=== PATIENT | male | born 1950 | race Caucasian/White ===

== ENCOUNTER 2017-09-07 06:46 | Inpatient (IN) | payer MEDICARE, SELFPAY ==
[2017-09-04 07:45] VITALS: BMI 34.8
[2017-09-07] VITALS (17 sets, daily range): BP systolic 127–170; BP diastolic 66–96; PULSE 56–110; RESP 12–18; TEMP 35.8–37.2; O2SAT 93–98; BMI 34.8
--- NOTE | 2017-09-07 07:26 | PM.PREOP ---
Pre-operative Note Interval Note Pre-op Check: History & Physical Reviewed and Exam Performed H&P completed within 30 days and has changed as indicated here:: L shoulder pain much better today
--- NOTE | 2017-09-07 07:49 | P.OP_ITS ---
Operative Date/Time/Diagnoses - Date of procedure: 09/07/17 Time of procedure: 11:20 Pre-op diagnosis: cervical disc herniation and stenosis Post-op diagnosis: same Procedure & Clinicians Procedure: C56 anterior cervical discectomy and fusion with cage C67 anterior cervical discectomy and fusion with cage C5-6 posterior instrumented fusion C6-7 posterior instrumented fusion Iliac crest bone graft Use of microscope Same procedure as scheduled: Yes Indications: 66-year-old male with intractable stenosis and disc herniation. He failed conservative management and requested operative intervention. Risks and benefits of surgery were discussed and appropriate consent obtained. Surgeon: Nirmal Rojas Campaign Specialist: Helen Lord Anesthesia Type: General Operative Notes Findings: none Closure Type: primary Specimen(s): none sent Estimated Blood Loss (mL): 20 Procedure in detail: The patient was brought to the operating room and intubated on the stretcher. Time-out was performed. There were then rolled over to the well-padded prone position on chest rolls. Two views of fluoroscopy were taken to confirm our positioning. The neck was then prepped and draped in the standard sterile fashion. Preoperative antibiotics were given. Using fluoroscopy, we localized for planned incisions. Two small 8 mm horizontal incisions were made over the lateral masses approximately 2 fingers below our planned surgical site. We then spread down and opened up the fascia. Then percutaneously placed our Steinmann pin through the soft tissue into the facet joint at C5-6 under fluoroscopic visualization. We used the reamer to decorticate the lateral masses compromising the facet. A trocar was placed over the Steinmann pin into the facet and then the pin was removed. We used a rasp to decorticate the facet joint itself. We then filled the DTrax cage with Osteocell bone graft and impacted it into the facet joint at C5-6 under fluoroscopic guidance. We then took the lateral mass screw and placed it through the cage and then into the lateral mass for the posterior screw fixation. The hydraulic specialist was removed and we packed more bone graft down the trocar covering the lateral mass. This was done bilaterally. This completed the instrumented posterior fusion at C5-6. We then went to the next level at C6-7. The same procedure was performed with preparation, placement of the cage with bone graft, and placement of the screw for bilateral instrumented posterior fusion at C6-7. The wounds were irrigated. The skin was closed and a sterile dressing placed. The patient was then rolled over to the table in the supine position and positioned for the anterior surgery. The arms were tucked and a shoulder roll was placed. The neck and left iliac crest were prepped and draped in the standard sterile fashion. A 3 cm oblique incision was made on the left side of the neck along the skin fold. Bovie was used to split the platysma. We then bluntly dissected a standard anterolateral approach to the precervical fascia. A marker was placed and x-ray taken to confirm our positioning. We then used the Bovie to the subperiosteally lift up the longus colli muscles. Self-retaining retractors were placed. We then placed Colfax pins and distracted across the C5-6 disc space. We brought in the microscope. A complete anterior discectomy was performed at C5-6 using a combination of scalpel, curettes, pituitaries, and Kerrison rongeurs. This was very thick hardened disc (not fused as it we could open the disc some with the Caspars). We were able to remove about 1mm at a time with the curettes and then work with Kerrisons. We slowly continued down to PLL. The bur was used to take down the posterior osteophytes as well as decorticate the disc space. We then released the PLL and used the Kerrison to remove any further posterior osteophytes and disc material. At the end a nerve hook could be swept cephalad caudally and out the neural foramen and everything was open. We trialed for our cages. A small stab incision was made over the left iliac crest. We placed a Jamshidi aspiration needle into the iliac crest and aspirated several mL of bone marrow graft. We then took our Meghna LDR RON-C cage and packed it with Osteocell, and mixed in the bone marrow aspirate. The cage was then placed into the disc space under fluoroscopic guidance. We used the started awl then the two locking plates were placed through the cage for fixation. This completed the ACDF at C5-6. We then went to the next level at C6-7. Again a complete diskectomy was performed including taking down the PLL and posterior osteophytes and disc material. Again this was slow going with his thick disc tissue. The endplates were prepped with a bur. We trialed and then packed our RON-C cage with the bone graft and then placed into the disc space. The locking plates were placed as well. This completed the ACDF at C6-7. Final x-rays were taken. The wound was copiously irrigated. There was no bleeding. The carotid was bleeding nicely. The platysma was closed. The superficial skin were closed. A Steri-Strip was placed over the iliac crest incision. Sterile dressings were placed. The patient was then extubated and brought to the recovery room without complication. Complications: none Condition: stable Disposition: PACU Plan for aftercare: Inpatient overnight. Probable discharge tomorrow. Up with physical therapy.
[2017-09-07] MEDS: LACTATED RINGERS 1,000 ML 42 ML IV ×2 (07:56→11:30)
--- NOTE | 2017-09-07 08:00 | DI.RAD.S_ITS ---
PROCEDURE: XR CERVICAL SPINE 2V OR 3V INDICATIONS: C5-6. C6-7 ANTERIOR, POSTERIOR FUSION TECHNIQUE: 2 view(s) of the cervical spine were acquired. COMPARISON: [facility] SIMON Hernandez, XR CERVICAL SPINE 2 OR 3 VIEWS, 07/09/2017, 11:46. FINDINGS: 2 spot fluoroscopic intraoperative images demonstrating C5-C6 and C6-C7 interbody cage graft with anterior retaining hardware, and bilateral facet devices Dictated by: Aniceto Fuller M.D. on 09/07/2017 at 12:10 Approved by: Aniceto Fuller M.D. on 09/07/2017 at 12:49
[2017-09-07] MEDS: CLINDAMYCIN 900 MG/50 ML PIGGYBACK 50 MG IV ×3 (08:20→23:47)
--- NOTE | 2017-09-07 09:11 | SUR.OPER ---
Supine, head on gel donut. Arms padded with gel pads, tucked at sides, towel roll under shoulders. Safety belt at thigh. Legs uncrossed. Prone on padded OR bed, head in foam head support, gel chest rolls, gel pad under knees, pillow under lower legs, toes free of pressure, arms tucked at side. Safety belt at thigh. pt secure with tape from shoulders to the end of the bed per surgeon's preference.
[2017-09-07] MEDS: MORPHINE 4 MG/ML INJ IV ×2 (11:42→11:50)
[2017-09-07] MEDS: THROMBIN (BOVINE) 5,000 UNIT VIAL 5000 UNIT TOP (11:56)
[2017-09-07] MEDS: SODIUM CHLORIDE 0.9% 1,000 ML, GENTAMICIN 80 MG IRR (11:56)
[2017-09-07] MEDS: fentaNYL 100 MCG/2 ML INJ 50 MCG IV ×2 (12:05→12:20)
[2017-09-07] MEDS: LORazepam 2 MG/ML SYRINGE 0.25 MG IV (12:14)
--- NOTE | 2017-09-07 13:04 | PC.NURSE ---
pt arrived to room 220. alert and oriented, drowsy. RR 15. family at bedside.
[2017-09-07] MEDS: LACTATED RINGERS 1,000 ML 125 ML IV ×2 (14:07→23:45)
[2017-09-07] MEDS: MORPHINE PCA 30 MG/30 ML PCA.VIAL IV ×3 (14:17→21:46)
--- NOTE | 2017-09-07 14:29 | ST.IPSCREEN ---
SPEECH PATHOLOGY: Patient seen for voice and swallowing screens following cervical fusion surgery this a.m. Pt's family in the room. Explained that we typically see pts 24 hours following surgery; however, since the weekend is coming, I wanted to provide information and screen the pt. He was drinking ice water and eating ice cream without overt problems. Voice sounded appropriate. Family indicated they understood and were appreciative.
[2017-09-07] MEDS: hydrOXYzine pamoate 25 MG CAPSULE PO ×2 (15:55→20:05)
[2017-09-07] MEDS: OXYCODONE/ACETAMINOPHEN 5/325 TABLET 1 TAB PO (15:55)
[2017-09-07] MEDS: CELECOXIB 200 MG CAPSULE 400 MG PO (15:55)
--- NOTE | 2017-09-07 16:21 | PT.IIE ---
Physical Therapy Inpatient Evaluation/Re-Eval M1 PT/OT-IP Prior Functional Status Start: 09/07/17 16:08 Freq: NEEDED Status: Active Protocol: Document 09/07/17 16:10 AB (Rec: 09/07/17 16:20 AB [id number]) Medical Review Prior Functional Status Medical History Reviewed Yes Mobility and Gait pt stated that he is independent with all mobilities and ambulation without AD Social History Household Members spouse Living Arrangements House Number of Floors (Floors) 3 or More Floors Number of Stairs To Enter/Railing? 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 pt's spouse also works and will be off work for 1 week and their daughter can also come to help. M2 PT-IP Current Condition Start: 09/07/17 16:08 Freq: NEEDED Status: Active Protocol: Document 09/07/17 16:10 AB (Rec: 09/07/17 16:20 AB [id number]) Physical Therapy Current Condition Current Condition Evaluation Date 09/07/17 Treatment Diagnosis s/p ACDF Onset Date 09/07/17 Post Operative Precautions Cervical Spine Precautions Soft Collar for Comfort Soft Collar at all Times Rigid Collar No Heavy Lifting Log Roll M3 PT-IP Subjective Start: 09/07/17 16:08 Freq: NEEDED Status: Active Protocol: Document 09/07/17 16:10 AB (Rec: 09/07/17 16:20 AB [id number]) Subjective Physical Therapy Visit Type Type Initial Evaluation Visit Start Time 15:30 Visit Stop Time 16:02 Total Visit Minutes 32 Number of CUSTOMER ACCOUNT ADMINISTRATOR Visits 0 Physical Therapy Visit Comments Patient Comments pt requested to stand to use the urinal Therapy Pain Assessment Pain When Pain Assessed At Rest Pain Present Pain Present Pain Reported Location Neck Intensity 8 Scale Used Numeric (1 - 10) Pain Behaviors Facial Grimacing Wincing Pain Management Techniques Apply Cold Timing of Activity with Medications M4 PT-IP Mobility and Gait Start: 09/07/17 16:08 Freq: NEEDED Status: Active Protocol: Document 09/07/17 16:10 AB (Rec: 09/07/17 16:20 AB [id number]) PT-Bed Mobility Assessment Rolling Level of Assist Standby Assistance Supine to Sit Supine to Sit Standby Assistance Sit to Supine Sit to Supine Minimal Assistance Scooting Scooting Up and Down in Bed Standby Assistance PT-Transfer Assessment Sit to and From Stand Sit to and from Stand Contact Guard Assistance Equipment Transfer Assistive Device Gait Belt Front Wheeled Walker Comments Mobility Comments pt completed sit to stand from EOB CGA and was able to maintain standing CGA while using urinal. pt refused to do further therapy and wants to go back to bed due to increase pain. Gait Assessment Assistive Devices Assistive Device Gait Belt Front Wheeled Walker Comments Gait Comments pt was able to take side steps towards HOB using FWW CGA. PT-Balance Assessment Sitting Balance and Reactions Static Sitting Balance Ability Good Dynamic Sitting Balance Ability Good Standing Balance and Reactions Static Standing Balance Ability Fair Dynamic Standing Balance Ability Fair M5 PT-IP Objective Assessments Start: 09/07/17 16:08 Freq: NEEDED Status: Active Protocol: Document 09/07/17 16:10 AB (Rec: 09/07/17 16:20 AB [id number]) Orientation Orientation/Cognition Level of Alertness Alert Orientation Name Age Birthday Month Date Year Day of Week Place Situation Strength Lower Extremity Strength Assessment Within Functional Limits M6 PT-IP Treatment Start: 09/07/17 16:08 Freq: NEEDED Status: Active Protocol: Document 09/07/17 16:10 AB (Rec: 09/07/17 16:20 AB [id number]) Physical Therapy Treatment Education Post-Op Education Precautions Post-Op Packet Safety M7 PT-IP Assessment and Plan Start: 09/07/17 16:08 Freq: NEEDED Status: Active Protocol: Document 09/07/17 16:10 AB (Rec: 09/07/17 16:20 AB [id number]) PT Summary Assessment and Plan Potential Rehabilitation Potential Good Status of Condition at Evaluation Evolving Summary Impairments Pain ROM Strength Balance Coordination Sensation Tone Cognition Bed Mobility Transfers Gait Activity Tolerance Assessment Summary pt unable to tolerate much activity due to increase pain. will continue to assess. pt plans to go home with spouse assisting him. stair training will also be completed prior to d/c. Goals Bed Mobility Goal Independent Transfer Goal Independent Gait Goal Independent Gait Distance 200 Other Goals up/down 5 steps without rails Days to Meet Goals 3 Frequency of Treatment Frequency Of Treatment Twice a Day Treatment Plan Physical Therapy Treatment Plan Bed Mobility Training Transfer Training Gait Training Therapeutic Exercise Post Op Education Discharge Planning Hot or Cold Pack Neuromuscular Re-ed Recommendations To Nursing Amount of Assist Needed 1 Person Assist Discharge Recommendations PT Discharge Recommendations Home with Assistance Visit Care Team Role Provider Type Cornelius Velasquez MD Primary Care Provider Physician Nirmal Rojas MD Admit Provider Physician Attending Provider Current Diagnoses Carpal tunnel syndrome, right upper limb (09/07/17) Other spondylosis with myelopathy, cervical region (09/07/17) Spinal stenosis, cervical region (09/07/17) Medical History (Last Updated 09/06/17 @ 10:29 by Johanna Caldwell RN) Carpal tunnel syndrome (Acute) HTN (hypertension) (Acute) Neuropathy (Acute) Sleep apnea (Acute) Surgery Performed Operation Date: 09/07/17 07:45 Actual Procedures p C5-6 and C6-7 anterior discectomy & instrumentd fusion & posterior instrumented fusion w/bone graft - Nirmal Rojas MD Surgical History (Last Updated 09/06/17 @ 10:29 by Johanna Caldwell, RN) H/O shoulder surgery (Acute) History of cranial surgery (Acute) Previous back surgery (Acute)
[2017-09-07] MEDS: METOPROLOL 50 MG TABLET 100 MG PO (20:05)
[2017-09-07] MEDS: SENNOSIDES 8.6 MG TABLET 17.2 MG PO (20:05)
[2017-09-07] MEDS: DOCUSATE 100 MG CAPSULE PO (20:05)
[2017-09-07] MEDS: HYDROCODONE/ACET 5/325 TABLET 2 TAB PO (20:05)
[2017-09-08] MEDS: MAG HYDROX/ALUM/SIMETH 30 ML UDC PO ×3 (00:02→15:50)
[2017-09-08 00:28] VITALS: PULSE 106; RESP 18; TEMP 36.9; O2SAT 95
[2017-09-08] MEDS: hydrOXYzine pamoate 25 MG CAPSULE PO ×3 (04:01→15:47)
[2017-09-08] MEDS: HYDROCODONE/ACET 5/325 TABLET 2 TAB PO (04:03)
[2017-09-08 04:59] VITALS: BP 184/81; PULSE 73; RESP 18; TEMP 36.8; O2SAT 92
[2017-09-08] MEDS: MORPHINE PCA 30 MG/30 ML PCA.VIAL IV (05:44)
[2017-09-08 05:54] LABS: Hematocrit 39.6 % (41-53); Hemoglobin 13.5 g/dL (13.5-17.5)
[2017-09-08 07:30] VITALS: BP 149/79; PULSE 54; RESP 18; TEMP 36.4; O2SAT 94
[2017-09-08] MEDS: ALLOPURINOL 300 MG TABLET PO (09:26)
[2017-09-08] MEDS: DOCUSATE 100 MG CAPSULE PO ×2 (09:27→19:45)
[2017-09-08] MEDS: TRIAMTERENE/HCTZ 37.5/25 TABLET 1 CAP PO (09:27)
[2017-09-08] MEDS: METOPROLOL 50 MG TABLET 100 MG PO ×2 (09:27→19:44)
[2017-09-08] MEDS: LISINOPRIL 20 MG TABLET 40 MG PO (09:27)
--- NOTE | 2017-09-08 09:34 | PM.PNPO.1 ---
Subjective Interval history: POD #1 status post C 5-6, C6-7 anterior and posterior cervical diskectomy and fusion with Dr. phillips. Patient's pain was not well controlled by last night, placed onto a DIETARY SERVICE AIDE for pain control. Complaints of deep neck pain. No difficulty swallowing. Patient will be the CD from DIETARY SERVICE AIDE today and placed on oral Dilaudid. We will also give prednisone per 24 hr burst, he states he has had no previous issues taking prednisone in the past, and is not diabetic. Has not been up with PT yet. Is urinating well. Was having discomfort with soft collar. Date Patient Seen: 09/08/17 Time Patient Seen: 07:34 Exam Vital Signs (past 8 hours): Vital Signs - 8 hr 09/08/17 04:59 09/08/17 07:30 Temperature 98.3 F 97.6 F Pulse Rate 73 54 L Respiratory Rate 18 18 Blood Pressure 184/81 H 149/79 H Pulse Oximetry 92 94 Pulse Oximetry 94 Oxygen Delivery Method Nasal Cannula Oxygen Flow Rate 1.5 Narrative Exam Narrative: Patient is sitting up in bed in no acute distress. Dressings on back and anterior neck CDI. Steward/Stewardess Club Car strength is strong and equal. Sensation intact to light touch throughout bilateral upper extremities. Objective Labs Result Diagrams: 09/08/17 05:20 Labs: Laboratory Results - last 24 hr 09/08/17 05:20 Hgb 13.5 Hct 39.6 L Assessment & Plan Post-op (1) Status post cervical spinal fusion: Current Visit: Yes Status: Acute (2) Hypertension: Current Visit: Yes Status: Acute Postoperative Procedures Operation Date: 09/07/17 07:45 Actual Procedures Side Surgeon p C5-6 and C6-7 anterior discectomy & instrumentd fusion & posterior instrumented fusion w/bone graft Nirmal Rojas MD Postop day 1. Status post C5-6, C6-7 anterior and posterior diskectomy and fusion. Will DC DIETARY SERVICE AIDE, and started on oral Dilaudid. We will start Medrol 10 mg now, and 4 mg every 6 hr for 24 hr steroid burst, and DC after 24 hr. He can take Tylenol as well for pain relief. Has not been up with PT yet this morning, will ambulate today. He can wear soft collar for comfort. DC likely tomorrow once, pain is adequately controlled and he is ambulating safely. Time Spent With Patient less than 15 minutes Quality VTE Deep Vein Thrombosis/Pulmonary Embolism Present on Admission: No
--- NOTE | 2017-09-08 09:44 | P.PN_ITS ---
Subjective Interval history: POD #1 status post C 5-6, C6-7 anterior and posterior cervical diskectomy and fusion with Dr. phillips. Patient's pain was not well controlled by last night, placed onto a SPRINKLING SYSTEM INSTALLER for pain control. Complaints of deep neck pain. No difficulty swallowing. Patient will be the CD from SPRINKLING SYSTEM INSTALLER today and placed on oral Dilaudid. We will also give prednisone per 24 hr burst , he states he has had no previous issues taking prednisone in the past, and is not diabetic. Has not been up with PT yet. Is urinating well. Was having discomfort with soft collar. Date Patient Seen: 09/08/17 Time Patient Seen: 07:34 Exam Vital Signs (past 8 hours): Vital Signs - 8 hr 3 09/08/17 04:59 09/08/17 07:30 Temperature 98.3 F 97.6 F Pulse Rate 73 54 L Respiratory Rate 18 18 Blood Pressure 184/81 H 149/79 H Pulse Oximetry 92 94 Pulse Oximetry 94 Oxygen Delivery Method Nasal Cannula Oxygen Flow Rate 1.5 Narrative Exam Narrative: Patient is sitting up in bed in no acute distress. Dressings on back and anterior neck CDI. Study Director strength is strong and equal. Sensation intact to light touch throughout bilateral upper extremities. Objective Labs Result Diagrams: 09/08/17 05:20 Labs: Laboratory Results - last 24 hr 09/08/17 05:20 Hgb 13.5 Hct 39.6 L Assessment & Plan Post-op (1) Status post cervical spinal fusion: Current Visit: Yes Status: Acute (2) Hypertension: Current Visit: Yes Status: Acute Postoperative Procedures Operation Date: 09/07/17 07:45 Actual Procedures Side Surgeon p C5-6 and C6-7 anterior discectomy & instrumentd fusion & posterior instrumented fusion w/bone graft Nirmal Rojas MD Postop day 1. Status post C5-6, C6-7 anterior and posterior diskectomy and fusion. Will DC SPRINKLING SYSTEM INSTALLER, and started on oral Dilaudid. We will start Medrol 10 mg now, and 4 mg every 6 hr for 24 hr steroid burst, and DC after 24 hr. He can take Tylenol as well for pain relief. Has not been up with PT yet this morning , will ambulate today. He can wear soft collar for comfort. DC likely tomorrow once, pain is adequately controlled and he is ambulating safely. Time Spent With Patient less than 15 minutes Quality VTE Deep Vein Thrombosis/Pulmonary Embolism Present on Admission: No
[2017-09-08] MEDS: predniSONE 10 MG TABLET PO (10:26)
[2017-09-08] MEDS: HYDROMORPHONE 2 MG TABLET PO (10:26)
[2017-09-08] MEDS: ACETAMINOPHEN 325 MG TABLET PO (10:26)
--- NOTE | 2017-09-08 11:47 | PT.IPTN ---
Current Diagnoses Carpal tunnel syndrome, right upper limb (09/07/17) Essential (primary) hypertension (09/07/17) Other spondylosis with myelopathy, cervical region (09/07/17) Spinal stenosis, cervical region (09/07/17) Arthrodesis status (09/07/17) Surgery Performed Operation Date: 09/07/17 07:45 Actual Procedures p C5-6 and C6-7 anterior discectomy & instrumentd fusion & posterior instrumented fusion w/bone graft - Nirmal Rojas MD Physical Therapy Treatment Note M2 PT-IP Current Condition Start: 09/07/17 16:08 Freq: NEEDED Status: Active Protocol: Document 09/07/17 16:10 AB (Rec: 09/07/17 16:20 AB [id number]) Physical Therapy Current Condition Current Condition Evaluation Date 09/07/17 Treatment Diagnosis s/p ACDF Onset Date 09/07/17 Post Operative Precautions Cervical Spine Precautions Soft Collar for Comfort Soft Collar at all Times Rigid Collar No Heavy Lifting Log Roll M3 PT-IP Subjective Start: 09/07/17 16:08 Freq: NEEDED Status: Active Protocol: Document 09/08/17 11:40 AB (Rec: 09/08/17 11:47 AB [id number]) Subjective Physical Therapy Visit Type Type Treatment Note Visit Start Time 09:55 Visit Stop Time 10:22 Total Visit Minutes 27 Number of INCOME TAX AUDITOR Visits 0 Physical Therapy Visit Comments Patient Comments Pt agreeable to do therapy Therapy Pain Assessment Pain When Pain Assessed At Rest Pain Present Pain Present Pain Reported Location Neck Intensity 7 Scale Used Numeric (1 - 10) M4 PT-IP Mobility and Gait Start: 09/07/17 16:08 Freq: NEEDED Status: Active Protocol: Document 09/08/17 11:40 AB (Rec: 09/08/17 11:47 AB [id number]) PT-Transfer Assessment Sit to and From Stand Sit to and from Stand Standby Assistance Equipment Transfer Assistive Device Gait Belt Front Wheeled Walker Gait Assessment Gait Gait Assistance Required: Standby Assistance Distance (Feet) (feet) 300 Assistive Devices Assistive Device Gait Belt Front Wheeled Walker Orthotic/Prosthetic Devices or Brace: No Gait Deviations General Gait Pattern Antalgic Factors Limiting Gait Function Factors Limiting Gait Function Pain Comments Gait Comments assessed ambulation without AD initially but pt with unsteady gait requiring CGA. pt instructed to use FWW for safety and agreed. Stair Climbing Assessment Evaluation Level of Assist On Stairs Standby Assistance Contact Guard Assistance Devices Stair Climbing Assistive Devices Left Railing Technique/Endurance Stair Climbing Direction Ascend and Descend Stair Climbing Technique Step Over Step Number of Steps Climbed 3 Query Text: Stair Climbing Set # Repetitions (reps) 2 Comments Stair Climbing Comments pt completed up/down steps using 1 rail SBA. completed without rails CGA. M7 PT-IP Assessment and Plan Start: 09/07/17 16:08 Freq: NEEDED Status: Active Protocol: Document 09/08/17 11:40 AB (Rec: 09/08/17 11:47 AB [id number]) PT Summary Assessment and Plan Potential Rehabilitation Potential Good Summary Impairments Pain Strength Balance Bed Mobility Transfers Gait Activity Tolerance Progress Towards Goals Progressing Toward Goals Goals Bed Mobility Goal Independent Transfer Goal Independent Gait Goal Independent Gait Distance 200 Other Goals up/down 5 steps without rails Days to Meet Goals 3 Frequency of Treatment Frequency Of Treatment Twice a Day Treatment Plan Physical Therapy Treatment Plan Bed Mobility Training Transfer Training Gait Training Therapeutic Exercise Post Op Education Discharge Planning Hot or Cold Pack Neuromuscular Re-ed Recommendations To Nursing Amount of Assist Needed Standby Assistance Discharge Recommendations PT Discharge Recommendations Home with Assistance
[2017-09-08 12:05] VITALS: BP 157/96; PULSE 65; RESP 18; TEMP 36.7; O2SAT 95
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
[2017-09-08] MEDS: HYDROMORPHONE 4 MG TABLET PO ×4 (13:41→23:37)
--- NOTE | 2017-09-08 13:50 | OT.IP.EVAL ---
Current Diagnoses Carpal tunnel syndrome, right upper limb (09/07/17) Essential (primary) hypertension (09/07/17) Other spondylosis with myelopathy, cervical region (09/07/17) Spinal stenosis, cervical region (09/07/17) Arthrodesis status (09/07/17) Surgery Performed Operation Date: 09/07/17 07:45 Actual Procedures p C5-6 and C6-7 anterior discectomy & instrumentd fusion & posterior instrumented fusion w/bone graft - Nirmal Rojas MD Past Medical History (Last Updated 09/06/17 @ 10:29 by Johanna Caldwell RN) Carpal tunnel syndrome (Acute) HTN (hypertension) (Acute) Neuropathy (Acute) Sleep apnea (Acute) Surgical History (Last Updated 09/06/17 @ 10:29 by Johanna Caldwell RN) H/O shoulder surgery (Acute) History of cranial surgery (Acute) Previous back surgery (Acute) Occupational Therapy Inpatient Evaluation/Re-Eval M1 PT/OT-IP Prior Functional Status Start: 09/07/17 16:08 Freq: NEEDED Status: Active Protocol: Document 09/07/17 16:10 AB (Rec: 09/07/17 16:20 AB [id number]) Medical Review Prior Functional Status Medical History Reviewed Yes Mobility and Gait pt stated that he is independent with all mobilities and ambulation without AD Social History Household Members spouse Living Arrangements House Number of Floors (Floors) 3 or More Floors Number of Stairs To Enter/Railing? 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 pt's spouse also works and will be off work for 1 week and their daughter can also come to help. M3 OT- IP Subjective and Pain Start: 09/08/17 13:40 Freq: Status: Active Protocol: Document 09/08/17 01:15 ADH (Rec: 09/08/17 13:50 ADH [id number]) OT- Subjective Occupational Therapy Visit Type Type Initial Evaluation Visit Start Time 01:12 Visit Stop Time 01:41 Total Visit Minutes 29 Notes Pt agreeable to OT services on 3rd attempt Occupational Therapy Visit Comments Patient Comments Pt motivated to d/c home tomorrow. OT Pain Assessment Pain When Pain Assessed After Treatment Pain Present Pain Present Pain Reported Location Neck Intensity 7 Scale Used Numeric (1 - 10) Description Burning Shooting Spasm Pain Behaviors Calling Out Facial Grimacing Guarding Wincing Management Techniques Distraction Timing of Activity with Medications M4 OT- IP ADL's Start: 09/08/17 13:40 Freq: Status: Active Protocol: Document 09/08/17 01:15 ADH (Rec: 09/08/17 13:50 ADH [id number]) OT OGM-Ytjx-Hngfavh General Evaluation Self-Feeding Ability Independent Comments OT Self-Feeding Comments Pt c/o discomfort in neck, but able to eat soft foods without difficulty OT ADL-Grooming General Evaluation Grooming Ability Independent Comments OT Grooming Comments Pt stood at sink for hand hygiene without assistance OT ADL-Oral Care General Eval Oral Care Ability Standby Assistance Areas of Assistance Retrieving/Set-Up of Items OT ADL-Dressing General Eval Lower Body Dressing Ability Moderate Assistance Areas Needing Assistance Underpants/Brief Pants/Shorts Socks Shoes Comments OT Dressing Comments spouse present, and reports she will assist with LB dressing upon initial d/c. Pt with modified tools to increase independence. OT ADL-Toileting General Evaluation Toileting Ability Standby Assistance Devices Toileting Assistive Devices Grab Bars Urinal Comments OT Toileting Comments Good standing balance M6 OT- IP Functional Cognition Start: 09/08/17 13:40 Freq: Status: Active Protocol: Document 09/08/17 01:15 ADH (Rec: 09/08/17 13:50 ADH [id number]) Cognitive Factors Limiting Selfcare Function Cognitive Ability Level of Alertness Alert Patient Orientation Name Birthday Month Year Day of Week Place Situation Attention Span Ability Capable of Focused Attention Capable of Sustained Attention Ability to Follow Commands Able to Follow Multi-Step Commands Memory Description No Deficits Noted Safety Awareness No Deficits Noted Problem Solving Ability No deficits Noted Executive Function Ability No Deficits Noted Cognitive Comments Cognitive Assessment Comments Pt demo'd slight impulsivity and decreased caution with mobility, but not unsafe. OT- Vision and Hearing OT- Hearing Assessment OT- Hearing Assessment WFL OT- Vision Assessment Visual Acuity WFL M7 OT- IP Mobility and Balance Start: 09/08/17 13:40 Freq: Status: Active Protocol: Document 09/08/17 01:15 ADH (Rec: 09/08/17 13:50 ADH [id number]) OT-Transfer Assessment Sit to and From Stand Sit to and from Stand Independent Transfers Transfer Ability Standby Assistance Technique Transfer Destination Bed Bedside Commode Toilet Transfer Technique Stand Step Pivot Devices Transfer Assistive Devices Gait Belt Front Wheeled Walker OT- Gait Assessment Gait Gait Assistance Required: Standby Assistance Distance (Feet) (feet) 30 Able to Maintain Weight Bearing Status Yes During Gait Assistive Devices Assistive Device Front Wheeled Walker Orthotic/Prosthetic Devices or Brace: No Comments Gait Ability Comments no sway or LOB noted OT- Balance Assessment Sitting Balance and Reactions Static Sitting Balance Ability Normal Dynamic Sitting Balance Ability Normal Standing Balance and Reactions Static Standing Balance Ability Normal Dynamic Standing Balance Ability Normal M9 OT- IP Assessment and Plan Start: 09/08/17 13:40 Freq: Status: Active Protocol: Document 09/08/17 01:15 ADH (Rec: 09/08/17 13:50 ADH [id number]) OT Summary Assessment and Plan Potential Rehabilitation Potential Excellent Analytic Complexity at Evaluation Low Summary OT Impairments Pain Range of Motion Sensation Assessment Summary Pt with good progress toward PLOF. Pt most severely limited by pain management. Pt and spouse appear prepared with a safe d/c plan. Goals Dressing Goal Contact Guard Assistance Bathing Goal Minimal Assistance Frequency of Treatment Frequency Of Treatment Once a Day Treatment Plan OT Treatment Plan ADL Training Patient/Family Education Discharge Planning Discharge Recommendations OT Discharge Recommendations Home with Assistance
[2017-09-08] MEDS: predniSONE 1 MG TABLET 4 MG PO ×2 (14:08→19:42)
--- NOTE | 2017-09-08 14:25 | PC.NURSE ---
day shift note overview: Patient pleasant, calm and cooperative. Pain management attempts with po dilaudid, tylenol and prednisone dosing as ordered and given (see emar). Patient states pain remains 7/10 mostly, but manageable at this level and now sleeping in bed. Patient states he did not sleep well last night and is very tired. Patient ambulating well with walker and standby assistance. Dressings remain intact. soft collar in place. Moving independently in bed. SLIV. Tolerating po's, voiding without difficulty. Call light within reach.
--- NOTE | 2017-09-08 14:44 | PT.IPTN ---
Current Diagnoses Carpal tunnel syndrome, right upper limb (09/07/17) Essential (primary) hypertension (09/07/17) Other spondylosis with myelopathy, cervical region (09/07/17) Spinal stenosis, cervical region (09/07/17) Arthrodesis status (09/07/17) Surgery Performed Operation Date: 09/07/17 07:45 Actual Procedures p C5-6 and C6-7 anterior discectomy & instrumentd fusion & posterior instrumented fusion w/bone graft - Nirmal Rojas MD Physical Therapy Treatment Note M2 PT-IP Current Condition Start: 09/07/17 16:08 Freq: NEEDED Status: Active Protocol: Document 09/07/17 16:10 AB (Rec: 09/07/17 16:20 AB [id number]) Physical Therapy Current Condition Current Condition Evaluation Date 09/07/17 Treatment Diagnosis s/p ACDF Onset Date 09/07/17 Post Operative Precautions Cervical Spine Precautions Soft Collar for Comfort Soft Collar at all Times Rigid Collar No Heavy Lifting Log Roll M3 PT-IP Subjective Start: 09/07/17 16:08 Freq: NEEDED Status: Active Protocol: Document 09/08/17 14:44 AB (Rec: 09/08/17 14:44 AB [id number]) Subjective Physical Therapy Visit Type Type Patient Refusal Notes pt stated that he just finished with OT and had enough for today and refused PT.
[2017-09-08 15:25] VITALS: BP 168/94; PULSE 75; RESP 16; TEMP 36.9; O2SAT 96
[2017-09-08] MEDS: BENZOCAINE/MENTHOL 1 LOZ PKT 1 EACH PO (15:47)
[2017-09-08] MEDS: hydrOXYzine pamoate 25 MG CAPSULE 50 MG PO ×2 (19:43→23:38)
[2017-09-08] MEDS: SENNOSIDES 8.6 MG TABLET 17.2 MG PO (19:43)
[2017-09-08 19:54] VITALS: PULSE 81; RESP 16; TEMP 36.9; O2SAT 94
--- NOTE | 2017-09-08 20:32 | RT ---
PT IS A FORMER SMOKER. REBEKA D/C'D.
[2017-09-08] MEDS: METOCLOPRAMIDE 10 MG/2 ML INJ IV (23:39)
[2017-09-09 00:59] VITALS: BP 177/88; PULSE 97; RESP 19; TEMP 36.7; O2SAT 95
[2017-09-09] MEDS: predniSONE 1 MG TABLET 4 MG PO ×2 (01:06→08:05)
--- NOTE | 2017-09-09 03:06 | PC.NURSE ---
Addendum entered by Erika Jacobs R.N. 09/09/17 05:42: Joe slept for 5 hours, awake at 0530 for assessment, medicated for pain 6/10, same Dilaudid 4 mg + Vistaril 50 mg. Posterior incision edematous, ice pack being used for pain relief, collar in place all night. Prune juice given this morning to help with stooling before discharge. Original Note: Joe was awake at 2345, complaining about pain rate as 8-9/10 associated with operative sites, also complained about nagging gastric distress more like a reflux that seemed to be causing annoyance along with low level nausea. We discussed pain management, he has been taking dilaudid 4 mg w/ vistaril 50 mg. Since he is also on prednisone, I suggested Reglan IV to manage his gastrointestinal distress along with consuming food. This was effective and within 1 hour, he was more comfortable, reflux symptoms abated. Pain down to 3/10, he was able to take oral prednisone. Soft cervical collar in place, dressings ant/post intact; bruising on chest below anterior dressing. He is able to ambulate to bathroom with stand by assist.
[2017-09-09 04:30] VITALS: BP 137/89; PULSE 56; RESP 19; TEMP 36.6; O2SAT 96
[2017-09-09] MEDS: hydrOXYzine pamoate 25 MG CAPSULE 50 MG PO ×3 (05:29→13:51)
[2017-09-09] MEDS: HYDROMORPHONE 4 MG TABLET PO ×3 (05:29→13:49)
[2017-09-09 07:38] VITALS: BP 153/87; PULSE 63; RESP 18; TEMP 37; O2SAT 95
[2017-09-09] MEDS: DOCUSATE 100 MG CAPSULE PO (08:06)
[2017-09-09] MEDS: ALLOPURINOL 300 MG TABLET PO (08:06)
[2017-09-09] MEDS: LISINOPRIL 20 MG TABLET 40 MG PO (08:06)
[2017-09-09] MEDS: METOPROLOL 50 MG TABLET 100 MG PO (08:07)
[2017-09-09] MEDS: TRIAMTERENE/HCTZ 37.5/25 TABLET 1 CAP PO (08:08)
[2017-09-09] MEDS: SODIUM CHLORIDE 0.9% FLUSH 10 ML IV (08:08)
[2017-09-09] MEDS: ACETAMINOPHEN 325 MG TABLET PO (08:08)
--- NOTE | 2017-09-09 10:19 | PT.IPTN ---
Current Diagnoses Carpal tunnel syndrome, right upper limb (09/07/17) Essential (primary) hypertension (09/07/17) Other spondylosis with myelopathy, cervical region (09/07/17) Spinal stenosis, cervical region (09/07/17) Arthrodesis status (09/07/17) Surgery Performed Operation Date: 09/07/17 07:45 Actual Procedures p C5-6 and C6-7 anterior discectomy & instrumentd fusion & posterior instrumented fusion w/bone graft - Nirmal Rojas MD Physical Therapy Treatment Note M2 PT-IP Current Condition Start: 09/07/17 16:08 Freq: NEEDED Status: Active Protocol: Document 09/09/17 10:09 [facility] (Rec: 09/09/17 10:18 [facility] [id number]) Physical Therapy Current Condition Current Condition Evaluation Date 09/07/17 Treatment Diagnosis s/p ACDF Onset Date 09/07/17 Post Operative Precautions Cervical Spine Precautions Soft Collar for Comfort Soft Collar at all Times Rigid Collar No Heavy Lifting Log Roll M3 PT-IP Subjective Start: 09/07/17 16:08 Freq: NEEDED Status: Active Protocol: Document 09/09/17 10:09 [facility] (Rec: 09/09/17 10:18 [facility] [id number]) Subjective Physical Therapy Visit Type Type Treatment Note Visit Start Time 09:40 Visit Stop Time 10:09 Total Visit Minutes 19 Number of KNITTING MACHINE TENDER Visits 0 Physical Therapy Visit Comments Patient Comments Pt reports his pain is better controlled, some mild dizziness. Therapy Pain Assessment Pain When Pain Assessed During Mobility Location Neck Intensity 6 Scale Used Numeric (1 - 10) Description Aching Pain Management Techniques Apply Cold M4 PT-IP Mobility and Gait Start: 09/07/17 16:08 Freq: NEEDED Status: Active Protocol: Document 09/09/17 10:09 [facility] (Rec: 09/09/17 10:18 [facility] [id number]) PT-Transfer Assessment Sit to and From Stand Sit to and from Stand Independent Equipment Transfer Assistive Device Front Wheeled Walker Transfers Transfer Destination Chair Transfer Technique Stand Step Pivot Transfer Ability Level of Assist Standby Assistance Comments Mobility Comments Pt with good balance when using FWW for transfers. Gait Assessment Gait Gait Assistance Required: Standby Assistance Distance (Feet) (feet) 300 Assistive Devices Assistive Device Gait Belt Front Wheeled Walker Factors Limiting Gait Function Factors Limiting Gait Function Decreased Activity Tolerance Pain Comments Gait Comments No loss of balance with FWW , initially pt ambulated 10 ft with no AD and SBA, but felt a little dizzy d/t pain meds and requested FWW. Stair Climbing Assessment Evaluation Level of Assist On Stairs Standby Assistance Technique/Endurance Stair Climbing Direction Ascend and Descend Stair Climbing Technique Step Over Step Number of Steps Climbed 3 Query Text: Stair Climbing Set # Repetitions (reps) 2 Comments Stair Climbing Comments no rail on final 3 steps, no loss of balance, SBA PT-Balance Assessment Sitting Balance and Reactions Static Sitting Balance Ability Normal Dynamic Sitting Balance Ability Normal Standing Balance and Reactions Static Standing Balance Ability Good Dynamic Standing Balance Ability Good M6 PT-IP Treatment Start: 09/07/17 16:08 Freq: NEEDED Status: Active Protocol: Document 09/09/17 10:09 [facility] (Rec: 09/09/17 10:18 [facility] [id number]) Physical Therapy Treatment Education Post-Op Education Precautions M7 PT-IP Assessment and Plan Start: 09/07/17 16:08 Freq: NEEDED Status: Active Protocol: Document 09/09/17 10:09 [facility] (Rec: 09/09/17 10:18 [facility] [id number]) PT Summary Assessment and Plan Potential Rehabilitation Potential Good Summary Impairments Pain ROM Balance Activity Tolerance Progress Towards Goals Safe For Discharge Assessment Summary POD #2. Pt with improved tolerance to gait and general movements this session compared to yesterday. Pt able to manage stairs without assistance or rail and SBA, and gait is safe with FWW. Pt at this time is cleared to d/c home when medically stable. Frequency of Treatment Frequency Of Treatment Twice a Day Recommendations To Nursing Amount of Assist Needed Standby Assistance Discharge Recommendations PT Discharge Recommendations Home with Assistance
[2017-09-09 12:00] VITALS: BP 148/79; PULSE 63; RESP 17; TEMP 37.5; O2SAT 96
--- NOTE | 2017-09-09 14:03 | PC.NURSE ---
patient discharged to home with . iv discontinued intact. patient and reviewed instructions and home care handouts including medications (given prescriptions). patient and state understanding and have no further questions or concerns. iv dc'd intact. patient escorted out with all belongings by rough and trueing machine operator via wheelchair. patient has follow up appointment scheduled. patient instructed to call the surgeon with any questions or concerns.
--- NOTE | 2017-10-04 13:56 | PM.DS.1 ---
History of Present Illness Chief complaint: [id number] IP SURGERY Discharge Providers Date of admission: 09/07/17 06:46 Primary care physician: Cornelius Velasquez MD Consults: 09/07/17 13:31 Consult to Discharge Planning Routine Comment: Consult to Occupational Therapy Evaluate & Treat Comment: Physician Instructions: Evaluate and treat Consult to Physical Therapy Evaluate & Treat Comment: Physician Instructions: Evaluate and Treat Consult to Speech Therapy Evaluate & Treat Comment: s/p 2 level ACDF Physician Instructions: Evaluate and treat Discharge provider: Richie Avalos PA-C Summary Discharge Diagnosis: Status post C5-C6 anterior cervical diskectomy and fusion with cage, C6-C7 anterior cervical diskectomy with fusion with cage, C5-C6 posterior interbody instrumented fusion, C6-C7 posterior instrumented fusion, iliac crest bone graft. Hospital Course: Patient admitted to the hospital for the above-mentioned procedures. Patient failed conservative management and requested operative intervention. Patient consented to the same. Patient taken to the operating room underwent above-mentioned procedures. Patient back in their room recovering well and is stable condition. Patient did receive Medrol 10 mg x1 and 4 mg every 6 hr for 24 hr until discharged home. Exam Vital Signs (past 8 hours): Pulse Oximetry 96 Oxygen Delivery Method Nasal Cannula Oxygen Flow Rate 0 Objective Labs Result Diagrams: 09/08/17 05:20 Discharge Plan Discharge Plan Patient Disposition: Home, Self-Care Discharge Med Rec/Prescriptions Prescriptions: New hydromorphone [Dilaudid] 4 mg tablet 4 mg PO Q3H PRN (Reason: pain) Qty: 60 RF: 0 hydroxyzine pamoate [Vistaril] 50 mg capsule 50 mg PO Q6-8H PRN (Reason: spasms) Qty: 60 RF: 0 Continue metoprolol tartrate 100 mg Tablet 100 mg PO BID RF: 0 triamterene-hydrochlorothiazid 37.5-25 mg Capsule 1 cap PO QAM RF: 0 allopurinol 300 mg Tablet 300 mg PO QAM RF: 0 lisinopril 40 mg Tablet 40 mg PO QAM RF: 0 metoprolol tartrate 100 mg tablet 100 mg PO QDAY RF: 0 Follow up/Referrals: Nirmal Rojas MD [Physician] - 09/21/17 12:00 am (In 10-14 days) Provider Discharge Instructions Diet: Diet as Tolerated Wound Care Report to your healthcare provider any signs of infection, such as:: chills, fever, night sweats, increased pain and unusual drainage Visit Report/Discharge Packet Instructions: DI for Anterior Cervical Discectomy and Fusion Stand Alone Forms: Surgery Discharge Visit Report Forms: Stroke Signs & Symptoms Discharge Data Primary Care Provider: Cornelius Velasquez Attending Provider: Nirmal Rojas Admit Date/Time: 09/07/17 06:46 Discharges patient from system. Discharge Date/Time: 09/09/17 14:00 Quality VTE Deep Vein Thrombosis/Pulmonary Embolism Present on Admission: No
== END 2017-09-09 14:00 | disposition home or self-care (01) | DRG 454 ==
PROVIDERS: Admitting Provider Orthopaedic Surgery; PCP Family Medicine; Visit Provider Orthopaedic Surgery
PROC: 0RG10A0 Fusion of Cervical Vertebral Joint with Interbody Fusion Device, Anterior Approach, Anterior Column, Open Approach (ICD-10-PCS; principal; 2017-09-07 07:45)
DX: M48.02 Spinal stenosis, cervical region (principal); M50.022 Cervical disc disorder at C5-C6 level with myelopathy; I10 Essential (primary) hypertension; F17.210 Nicotine dependence, cigarettes, uncomplicated
CPT/HCPCS: 72040; 76001; 85014; 85018; 97116; 97162; 97165; 97535; C1776; J0330; J0360; J1100; J2060; J2250; J2270; J2405; J2704; J2765; J3010

== ENCOUNTER → 2018-08-20 14:55 | Outpatient (CLI) | payer MEDICARE, SELFPAY ==
[2017-09-07 17:45] VITALS: BMI 34.8
--- NOTE | 2018-08-20 | DI.RAD.S_ITS ---
PROCEDURE: XR FOOT RT MIN 3V INDICATIONS: RIGHT FOOT PAIN TECHNIQUE: 3 views of the foot were acquired. COMPARISON: None. FINDINGS: Bones: No fractures or dislocations. No suspicious bony lesions. There is severe first metatarsophalangeal joint degeneration and moderate first interphalangeal joint degeneration. There is mild/moderate degeneration at other interphalangeal joints. There is posterior and plantar calcaneal spurring. Soft tissues: No tibiotalar joint effusion. Achilles tendon appears normal. IMPRESSION: 1. Severe degenerative joint disease. 2. Posterior and plantar calcaneal spurring. Dictated by: Ash Espinoza M.D. on 08/20/2018 at 17:15 Approved by: Ash Espinoza M.D. on 08/20/2018 at 17:19
== END ==
PROVIDERS: PCP Family Medicine; Visit Provider Family Medicine
DX: M79.671 Pain in right foot (principal); M19.071 Primary osteoarthritis, right ankle and foot; M77.31 Calcaneal spur, right foot
CPT/HCPCS: 73630

== ENCOUNTER → 2019-07-09 11:46 | Outpatient (CLI) | payer OTHER, SELFPAY ==
[2017-09-07 17:45] VITALS: BMI 34.8
--- NOTE | 2019-07-09 | DI.RAD.S_ITS ---
PROCEDURE: XR WRIST LT MIN 3V INDICATIONS: Lump on left wrist, left wrist pain TECHNIQUE: 4 views of the wrist were acquired. COMPARISON: None. FINDINGS: Bones: No fractures or dislocations. No suspicious bony lesions. Diffuse carpal joint degeneration. There is mild diffuse MCP osteoarthritis. Juxta-articular lucency projecting in the third metacarpal head, technically age-indeterminate. Scattered degenerative subchondral sclerosis and spurring. Soft tissues: No suspicious soft tissue calcifications. IMPRESSION: Diffuse degenerative changes as above. Better characterization of the soft tissues for palpable lump could be performed with contrast-enhanced MRI. Dictated by: Aniceto Fuller M.D. on 07/09/2019 at 13:40 Approved by: Aniceto Fuller M.D. on 07/09/2019 at 13:44
== END ==
PROVIDERS: PCP Family Medicine; Referring Provider Family Medicine; Visit Provider Family Medicine
DX: M25.532 Pain in left wrist (principal); R22.32 Localized swelling, mass and lump, left upper limb; M19.042 Primary osteoarthritis, left hand
CPT/HCPCS: 73110

== ENCOUNTER → 2019-10-22 15:06 | Outpatient (CLI) | payer OTHER, SELFPAY ==
[2017-09-07 17:45] VITALS: BMI 34.8
--- NOTE | 2019-10-22 15:08 | DI.RAD.S_ITS ---
PROCEDURE: XR CERVICAL SPINE 4V OR 5V INDICATIONS: neck pain TECHNIQUE: 5 views of the cervical spine acquired. COMPARISON: [facility], CR, XR CERVICAL SPINE 2 OR 3 VIEWS, 07/12/2018, 11:24. Merged With [facility], CR, XR CERVICAL SPINE 2V OR 3V, 09/07/2017, 8:43. FINDINGS: Bones: Straightening of the normal lordotic curvature. Slight cervical kyphosis noted. Trace anterolisthesis of C2 on C3. Multilevel degenerative endplate sclerosis and spurring. Diffuse facet arthropathy. Interbody cage grass present at C5-C6 and C6-C7 with anterior retaining pins and facet hardware. On the right, there is mild bony foraminal narrowing at C4-C5 and C5-C6. On the left, there is severe C3-C4 bony foraminal stenosis. Soft tissues: No prevertebral soft tissue swelling. Carotid atherosclerotic plaques incidentally noted. IMPRESSION: Postsurgical changes, and multilevel cervical spondylosis and facet arthropathy. No interval change. Grade 1 anterolisthesis of C2 on C3 Dictated by: Aniceto Fuller M.D. on 10/22/2019 at 15:55 Approved by: Aniceto Fuller M.D. on 10/22/2019 at 16:03
== END ==
PROVIDERS: PCP Family Medicine; Referring Provider Family Medicine; Visit Provider Family Medicine
DX: M54.2 Cervicalgia (principal); M47.812 Spondylosis without myelopathy or radiculopathy, cervical region; M43.12 Spondylolisthesis, cervical region; G47.9 Sleep disorder, unspecified; F41.9 Anxiety disorder, unspecified; Z98.1 Arthrodesis status
CPT/HCPCS: 72050; 99215

== ENCOUNTER → 2019-12-13 08:41 | Outpatient (CLI) | payer OTHER, SELFPAY ==
[2019-11-19 15:52] VITALS: BMI 34.8
[2019-12-14 22:43] LABS: COVID19 Sendout Not Detected (Not Detect)
== END ==
PROVIDERS: PCP Family Medicine; Visit Provider Physician Assistant
DX: Z11.59 Encounter for screening for other viral diseases (principal)
CPT/HCPCS: 87635

== ENCOUNTER 2019-12-16 07:25 | Outpatient (CLI) | payer OTHER, SELFPAY ==
[2019-11-19 15:52] VITALS: BMI 34.8
[2019-12-16] VITALS (9 sets, daily range): BP systolic 151–207; BP diastolic 73–114; PULSE 40–56; RESP 11–18; TEMP 36.3; O2SAT 91–97
--- NOTE | 2019-12-16 07:26 | DI.RAD.S_ITS ---
PROCEDURE: PAIN C/T FACET INJ/BLK 1ST NATE COMPARISON: [facility], RG, MRI C-SPINE W/O CONTRAST, 10/17/2019, 7:59. [facility], CR, XR CERVICAL SPINE 4V OR 5V, 10/22/2019, 14:13. INDICATIONS: SPONDYLOSIS FINDINGS: Fluoroscopic images were obtained during a procedure and submitted for interpretation following the completion of the procedure. On these images, bilateral spinal needles are seen of the facets at the levels labeled C7-T1. Appropriate position of the tips of the needles is confirmed with injection of a small amount of iodinated contrast. Lower cervical spine postoperative changes are seen. IMPRESSION: Intraprocedural examination within normal limits. Dictated by: Zach Martins M.D. on 12/16/2019 at 8:36 Approved by: Zach Martins M.D. on 12/16/2019 at 8:38
[2019-12-16] MEDS: fentaNYL 100 MCG/2 ML INJ 50 MCG IV (08:40)
[2019-12-16] MEDS: MIDAZOLAM 5 MG/5 ML VIAL IV (08:44)
[2019-12-16] MEDS: IOPAMIDOL 15 ML VIAL 3 ML INJ (08:45)
[2019-12-16] MEDS: BUPIVACAINE 0.5% (PF) VIAL 2 ML INJ (08:46)
[2019-12-16] MEDS: DEXAMETHASONE 10 MG/ML VIAL 20 MG INJ (08:47)
--- NOTE | 2019-12-16 08:57 | P.PCN_ITS ---
Date/Time/Diagnoses Date of procedure: 12/16/19 Time of procedure: 08:57 Pre-procedure diagnosis: 1. FACET ARTHROPATHY 2. AXIAL NECK PAIN Post-procedure diagnosis: same Procedure Notes Procedure: 1. FLUOROSCOPICALLY GUIDED, CONTRAST-CONTROLLED BILATERAL C7/T1 FACET JOINT INJECTIONS WITH CONSCIOUS SEDATION. Indications: Joe is referred by Dr. Velasquez for treatment of Axial Neck Pain Physician: Santhosh Stephenson Total Fluoroscopy time (seconds): 11 Total sedation minutes: 9 Complications: none Procedure in detail & Post-procedure care: DESCRIPTION OF PROCEDURE Fluoroscopically guided, contrast-controlled bilateral C7/T1 facet joint injections with conscious sedation. Following review of allergy and review of potential side effects and complications, including, but not necessarily limited to, infection, allergic reaction, local tissue breakdown, stroke, temporary or permanent nerve injury and paralysis, the patient indicated that the patient understood and agreed to proceed. An informed consent document was signed by the patient, witnessed by a nurse, and placed in the patient's chart. Additionally, other treatment options including medications, modalities, and physical therapy were reviewed with the patient. After review of previous anaesthesic history and IV conscious sedation the patient was deemed safe to proceed with today?s procedure with IV conscious sedation as ASA class II designation. Safety time-out was performed to confirm patient ID, procedure to be performed and site of procedure. IV sedation was accomplished with a combination of 4mg of Versed and 50mcg of Fentanyl was administered by the RN after DO order, titrated to patient comfort during the course of the procedure while the patient remained responsive to all verbal commands In the prone position, following sterile prep and drape of the cervical spine region, the posterior aspect of the bilateral C7/T1 facet joints were identified fluoroscopically. The skin was anesthetized via a 25-gauge 1.5-inch needle with 1% lidocaine solution into the corresponding facet joints. At this point, a 25- gauge 2.5-inch spinal needle was atraumatically introduced and advanced under fluoroscopic guidance into the corresponding facet joints. Following negative aspiration, injections of approximately 0.2-cc of Isovue 200 confirmed interarticular placement without vascular uptake. At this point, a total of 1cc including 0.5cc or 5mg of dexamethasone combined with 0.5cc of 1% lidocaine solution was injected without complication into each of the corresponding facet joints. The procedure tolerated the procedure well without signs or symptoms of complications prior to transfer to the recovery area continued monitoring without incident. The patient was then transferred to the recovery area where they were observed for an appropriate period of time after the injection. The patient reported a VAS score of 7 prior to the procedure and a post- procedure VAS of 0. POST OP INSTRUCTIONS They were provided a Pain Log to continue to record their response to the target-specific procedure prior to their follow-up visit with their referring physician. Additionally, specific post-injection care instructions and a contact number to our office were provided if concerns arise regarding possible complications associated with the procedure are suspected.
== END 2019-12-16 09:54 | disposition home or self-care (01) ==
LOC: RAD 07:25
PROVIDERS: PCP Family Medicine; Referring Provider Family Medicine; Visit Provider Physical Medicine & Rehabilitation
DX: M47.812 Spondylosis without myelopathy or radiculopathy, cervical region (principal); M54.2 Cervicalgia
CPT/HCPCS: 64490; 99152; J1100; J2250; J3010

== ENCOUNTER 2020-01-27 16:33 | Emergency (ER) | payer OTHER, SELFPAY ==
[2019-11-19 15:52] VITALS: BMI 34.8
[2020-01-27] VITALS (9 sets, daily range): BP systolic 161–199; BP diastolic 81–105; PULSE 45–68; RESP 14–20; TEMP 36.4–36.6; O2SAT 96–97
--- NOTE | 2020-01-27 16:53 | DI.RAD.S_ITS ---
PROCEDURE: XR CHEST 1V INDICATIONS: chest pain TECHNIQUE: One view of the chest was acquired. COMPARISON: [facility], , CHEST 2 VIEW, 05/17/2012, 11:20. FINDINGS: Surgical changes and devices: None. Lungs and pleura: Lungs are clear. No pleural effusions or pneumothorax. Mediastinum: Mediastinal contours appear normal. Heart size is normal. Bones and chest wall: No suspicious bony lesions. Overlying soft tissues appear unremarkable. IMPRESSION: No acute cardiopulmonary pathology. Dictated by: Victor Manuel Osorio M.D. on 01/27/2020 at 17:21 Approved by: Victor Manuel Osorio M.D. on 01/27/2020 at 17:22
[2020-01-27 17:18] LABS: Add Manual Diff / Slide Review NO; Basophils Absolute Auto 100 /uL (0-100); Basophils Percent Auto 0.8 % (0-2); Eosinophils Absolute Auto 200 /uL (0-450); Eosinophils Percent Auto 2.8 % (2-4); Hematocrit 42.3 % (41-53); Hemoglobin 14.5 g/dL (13.5-17.5); Lymphocytes Absolute Auto 1800 /uL (1100-4500); Lymphocytes Percent Auto 20.7 % (25-40); Mean Corpuscular HGB Conc 34.3 % (30-36); Mean Corpuscular Volume 90.5 fL (80-100); Monocytes Absolute Auto 900 /uL (0-900); Monocytes Percent Auto 10.6 % (3-14); Neutrophils Absolute Auto 5600 /uL (1500-7000); Neutrophils Percent Auto 65.1 % (50-75); Platelet Count 207 X10^3/uL (150-400); Red Blood Cell Count 4.68 X10^6/uL (4.5-5.9); Red Cell Distribution Width 12.7 % (11.6-14.8); White Blood Cell Count 8.5 X10^3/uL (4.5-11.0)
[2020-01-27 17:24] LABS: Prothrombin Time 10.9 SECONDS (10.1-12.7)
[2020-01-27 17:27] LABS: PTT Partial Thromboplastin Tim 36 SECONDS (26.4-36.2)
[2020-01-27 17:28] LABS: Alanine Aminotransferase 39 IU/L (<50); Albumin 4.1 g/dL (3.5-5.0); Albumin Globulin Ratio 1.6 (1.0-2.8); Alkaline Phosphatase 82 U/L (38-126); Aspartate Aminotransferase 39 IU/L (17-59); BUN Creatinine Ratio 20.6 (6-22); Bilirubin Total 0.4 mg/dL (0.2-1.3); Blood Urea Nitrogen 21 mg/dL (9-20); Calcium 9.2 mg/dL (8.4-10.2); Carbon Dioxide 29 mmol/L (22-32); Chloride 105 mmol/L (98-107); Creatine Kinase 281 U/L (55-170); Estimated Glomerular Filt Rate > 60.0 mL/min (>60); Globulin 2.6 g/dL (1.7-4.1); Glucose 94 mg/dL (80-110); Lipase 179 U/L (23-300); Potassium 3.6 mmol/L (3.4-5.1); Sodium 139 mmol/L (137-145); Total Protein 6.7 g/dL (6.3-8.2)
[2020-01-27 17:40] LABS: Troponin I 0.021 ng/mL (0.01-0.034)
[2020-01-27 17:43] LABS: CKMB % Relative Index 2.5 % (1.5-5.0); Creatine Kinase MB 7.14 ng/mL (<2.37); HEMOLYSIS 15 (0-50)
--- NOTE | 2020-01-27 17:52 | ED.CHESTPAIN ---
HPI - Chest Pain <SIMON Costello - Last Filed: 01/27/20 21:57> General Chief Complaint: Chest Pain Stated Complaint: states high blood pressure not going down Time Seen by Provider: 01/27/20 17:14 Source: patient Mode of arrival: Ambulatory History of Present Illness HPI narrative: 69yo male with a history of hypertension, multiple lumbar fusions, chronic back pain, presents to the emergency department for elevated blood pressure. Patient states he went to receive a spinal steroid injection yesterday and was told his blood pressure was elevated approximately 200 systolic. Patient then noticed his blood pressure was also elevated today at approximately 190 systolic. Patient states today at 1500 he noticed a ?twinge of chest discomfort ?which he describes as a spasm in his chest which is similar to spasms that he has in his back from chronic surgeries. He states the pain was very mild and lasted approximately a few hours. Pain has resolved now this time. He denies any other associated symptoms such as shortness of breath, dizziness, syncope, nausea, vomiting, diarrhea, or any other concerns. Related Data Home Medications Medication Instructions Recorded Confirmed allopurinol 300 mg PO QAM 09/06/17 10/22/19 lisinopril 40 mg PO QAM 09/06/17 10/22/19 metoprolol tartrate 100 mg PO BID 09/06/17 10/22/19 triamterene-hydrochlorothiazid 1 cap PO QAM 09/06/17 10/22/19 indomethacin 50 mg capsule 50 mg PO BID PRN 10/22/19 10/22/19 Previous Rx's Medication Instructions Recorded trazodone 50 mg tablet 100 mg PO .COMPLEX PRN #60 tab 10/22/19 Allergies Allergy/AdvReac Type Severity Reaction Status Date / Time penicillin G [PENICILLIN G] Allergy Severe TONGUE Verified 12/16/19 07:46 SWELLING Review of Systems <SIMON Costello - Last Filed: 01/27/20 21:57> Review of Systems Narrative: REVIEW OF SYSTEMS: GENERAL: Denies fever or chills. HENT: No head trauma, hearing loss or sore throat. EYES: No loss of vision, double vision, eye pain, or irritation. CARDIOVASCULAR: Reports chest pain, see HPI. RESPIRATORY: No shortness of breath or cough. GASTROINTESTINAL: No nausea, vomiting, diarrhea, or constipation. GENITOURINARY: No flank pain or dysuria. MUSCULOSKELETAL: Reports chronic back pain, see HPI. INTEGUMENTARY: No rash, lesions, or pruritus. NEURO: No numbness, tingling, memory loss, or confusion. PSYCH: No behavior or mood changes. Patient History <SIMON Costello - Last Filed: 01/27/20 21:57> Medical History Anxiety (Acute) Arthritis of facet joint of cervical spine (Acute) Carpal tunnel syndrome (Acute) HTN (hypertension) (Acute) Neuropathy (Acute) Sleep apnea (Acute) Sleep disturbance (Acute) Surgical History H/O shoulder surgery (Acute) History of cranial surgery (Acute) History of lumbar fusion (Acute) Previous back surgery (Acute) Social History household members: spouse Smoking Status: Former smoker alcohol intake: current Smoking Status: Former smoker alcohol intake frequency: a few times a week Substance Use Type: marijuana Exam <SIMON Costello - Last Filed: 01/27/20 21:57> Initial Vital Signs Initial Vital Signs: Vital Signs Temperature 97.9 F 01/27/20 16:48 Pulse Rate 52 L 01/27/20 16:48 Respiratory Rate 20 01/27/20 16:48 Blood Pressure 198/105 H 01/27/20 16:48 Pulse Oximetry 97 01/27/20 16:48 PHYSICAL EXAMINATION: GENERAL: Well groomed, alert, and cooperative. Answers questions promptly and appropriately. Vital signs noted. HENT: Normocephalic, atraumatic. Ear canals patent. Oral mucosa is pink and moist. EYES: Conjunctiva pink, sclera white, no periorbital swelling. CHEST: Normal to inspection and without deformities. CARDIOVASCULAR: S1 and S2 sounds normal. Regular rate and rhythm, no murmurs, clicks, or bruits. No pedal edema. RESPIRATORY: Normal respiratory rate, trachea midline, airway patent. No stridor, nasal flaring or accessory muscle use. Lungs are clear in all sanchez without wheeze, rhonchi, or crackles. GASTROINTESTINAL: Bowel sounds normoactive. Abdomen is soft and non-tender. No organomegaly. MUSCULOSKELETAL: Normal gait and coordination. Equal tone and mass bilaterally. EXTREMITIES: CMS intact. Moves all extremities. SKIN: Warm, dry, soft, appropriate color for ethnicity. No lesions, rashes, or wounds. NEURO: Alert and Oriented X 3. Good coordination. No ataxia, or sensory deficits, or cognitive issues. Cranial Nerves: II: Visual sanchez grossly intact. III & IV & : EOMIs V: Able to open and close jaw. VII: Facial movements symetrical. Able to close eyelids tightly. VIII: Hearing grossly intact, adequate balance. X: Uvula pronation intact. XI: Patient is able to shrug shoulders. XII: Patient is able to stick out tongue and move it side to side. PSYCH: Appropriate affect and mood. <Cornelius Miller DO - Last Filed: 01/27/20 22:02> Initial Vital Signs Initial Vital Signs: Vital Signs Temperature 97.9 F 01/27/20 16:48 Pulse Rate 52 L 01/27/20 16:48 Respiratory Rate 20 01/27/20 16:48 Blood Pressure 198/105 H 01/27/20 16:48 Pulse Oximetry 97 01/27/20 16:48 Scores <SIMON Costello - Last Filed: 01/27/20 21:57> HEART Score Heart Score history: Slightly Suspicious Heart Score EKG: Normal Heart Score Age: > or = 65 years old Heart Score risk factors: 1-2 risk factors Heart Score troponin: < or = to normal limit Heart Score Total: 3 NIH Stroke Scale Level of Conciousness: Alert, keenly responsive Ask month/age: Answers both questions correctly. Open/close eyes, close hand: Performs both tasks correctly Best gaze horizontal: Normal Visual sanchez: No visual loss Facial palsy: Normal symetrical movement Left arm drift: No drift for full 10 sec Right arm drift: No drift for full 10 sec Left leg drift: No drift for full 5 sec Right leg drift: No drift for full 5 sec Limb ataxia: Absent Sensory on face/arms/legs: Normal, no sensory loss Best language: No aphasia, normal Dysarthria: Normal Extinction or inattention: No abnormality Total NIH Stroke scale score: 0 Course <SIMON Costello - Last Filed: 01/27/20 21:57> Course Course Narrative: Patient continued to deny chest pain her ED stay, did report increasing chronic back pain, patient states he usually smokes marijuana for his back pain is unable to do so at this time. Orders Ordered: ED Orders 01/27/20 16:53 XR chest 1V Stat 01/27/20 16:58 EKG-12 Lead Stat 01/27/20 17:08 Complete Blood Count AUTO DIFF Stat Comprehensive Metabolic Panel Stat Lipase Stat Partial Thromboplastin Time Stat Prothrombin Time INR Stat Troponin & CK Cardiac Panel Stat 01/27/20 20:04 EKG-12 Lead Stat 01/27/20 20:05 Trop I [Troponin I] Stat 01/27/20 21:04 EKG-12 Lead Stat Discontinued Medications Morphine Sulfate (Morphine) 4 mg IV NOW ONE Stop: 01/27/20 17:54 Last Admin: 01/27/20 18:08 Dose: 4 mg Documented by: BALTA Oxycodone/Acetaminophen (Percocet 5/325) 1 tab PO NOW ONE Stop: 01/27/20 21:33 Last Admin: 01/27/20 21:40 Dose: 1 tab Documented by: BALTA Reevaluation(s) Reevaluation #1: Discuss symptoms, tests, test results and plan of care with Dr. miller Vital Signs Vital signs: Vital Signs - 8 hr 01/27/20 16:48 01/27/20 17:00 01/27/20 18:00 Temperature 97.9 F Pulse Rate 52 L 53 L 45 L Respiratory Rate 20 16 14 Blood Pressure 198/105 H 199/89 H 191/81 H Pulse Oximetry 97 96 96 01/27/20 19:00 01/27/20 20:15 01/27/20 21:15 Temperature Pulse Rate 45 L 53 L 53 L Respiratory Rate 16 16 16 Blood Pressure 198/89 H 194/93 H 161/101 H Pulse Oximetry 97 97 97 01/27/20 21:24 01/27/20 21:42 01/27/20 21:50 Temperature 97.6 F 97.8 F Pulse Rate 53 L 68 Respiratory Rate 16 16 Blood Pressure 176/84 H Pulse Oximetry 96 97 <Cornelius Miller DO - Last Filed: 01/27/20 22:02> Orders Ordered: ED Orders 01/27/20 16:53 XR chest 1V Stat 01/27/20 16:58 EKG-12 Lead Stat 01/27/20 17:08 Complete Blood Count AUTO DIFF Stat Comprehensive Metabolic Panel Stat Lipase Stat Partial Thromboplastin Time Stat Prothrombin Time INR Stat Troponin & CK Cardiac Panel Stat 01/27/20 20:04 EKG-12 Lead Stat 01/27/20 20:05 Trop I [Troponin I] Stat 01/27/20 21:04 EKG-12 Lead Stat Discontinued Medications Morphine Sulfate (Morphine) 4 mg IV NOW ONE Stop: 01/27/20 17:54 Last Admin: 01/27/20 18:08 Dose: 4 mg Documented by: BALTA Oxycodone/Acetaminophen (Percocet 5/325) 1 tab PO NOW ONE Stop: 01/27/20 21:33 Last Admin: 01/27/20 21:40 Dose: 1 tab Documented by: BALTA Vital Signs Vital signs: Vital Signs - 8 hr 01/27/20 16:48 01/27/20 17:00 01/27/20 18:00 Temperature 97.9 F Pulse Rate 52 L 53 L 45 L Respiratory Rate 20 16 14 Blood Pressure 198/105 H 199/89 H 191/81 H Pulse Oximetry 97 96 96 01/27/20 19:00 01/27/20 20:15 01/27/20 21:15 Temperature Pulse Rate 45 L 53 L 53 L Respiratory Rate 16 16 16 Blood Pressure 198/89 H 194/93 H 161/101 H Pulse Oximetry 97 97 97 01/27/20 21:24 01/27/20 21:42 01/27/20 21:50 Temperature 97.6 F 97.8 F Pulse Rate 53 L 68 Respiratory Rate 16 16 Blood Pressure 176/84 H Pulse Oximetry 96 97 MDM - Chest Pain <SIMON Costello - Last Filed: 01/27/20 21:57> Medical Records Data Attestation: I reviewed the patient's medical records. Lab Data Attestation: I reviewed the patient's lab results. Result diagrams: 01/27/20 17:08 01/27/20 17:08 Labs: Lab Results 01/27/20 01/27/20 01/27/20 Range/Units 17:08 17:08 17:08 WBC 8.5 (4.5-11.0) X10^3/uL RBC 4.68 (4.5-5.9) X10^6/uL Hgb 14.5 (13.5-17.5) g/dL Hct 42.3 (41-53) % MCV 90.5 (80-100) fL MCH 31.0 (26-34) PG MCHC 34.3 (30-36) % RDW 12.7 (11.6-14.8) % Plt Count 207 (150-400) X10^3/uL Neut % (Auto) 65.1 (50-75) % Lymph % (Auto) 20.7 L (25-40) % [place] % (Auto) 10.6 (3-14) % Eos % (Auto) 2.8 (2-4) % Baso % (Auto) 0.8 (0-2) % Neut # (Auto) 5600 (3400-9215) /uL Lymph # (Auto) 1800 (9941-9497) /uL [place] # (Auto) 900 (0-900) /uL Eos # (Auto) 200 (0-450) /uL Baso # (Auto) 100 (0-100) /uL PT 10.9 (10.1-12.7) SECONDS INR 1.0 (0.9-1.3) APTT 36 (26.4-36.2) SECONDS Sodium 139 (137-145) mmol/L Potassium 3.6 (3.4-5.1) mmol/L Chloride 105 (98-107) mmol/L Carbon Dioxide 29 (22-32) mmol/L BUN 21 H (9-20) mg/dL Creatinine 1.02 (0.66-1.25) mg/dL Estimated GFR > 60.0 (>60) mL/min BUN/Creatinine Ratio 20.6 (6-22) Glucose 94 (80-110) mg/dL Calcium 9.2 (8.4-10.2) mg/dL Total Bilirubin 0.4 (0.2-1.3) mg/dL AST 39 (17-59) IU/L ALT 39 (<50) IU/L Alkaline Phosphatase 82 (38-126) U/L Total Creatine Kinase 281 H (55-170) U/L CK-MB (CK-2) 7.14 H (<2.37) ng/mL CK-MB (CK-2) Rel Index 2.5 (1.5-5.0) % Troponin I 0.021 (0.01-0.034) ng/mL Total Protein 6.7 (6.3-8.2) g/dL Albumin 4.1 (3.5-5.0) g/dL Globulin 2.6 (1.7-4.1) g/dL Albumin/Globulin Ratio 1.6 (1.0-2.8) Lipase 179 (23-300) U/L 01/27/20 Range/Units 20:05 WBC (4.5-11.0) X10^3/uL RBC (4.5-5.9) X10^6/uL Hgb (13.5-17.5) g/dL Hct (41-53) % MCV (80-100) fL MCH (26-34) PG MCHC (30-36) % RDW (11.6-14.8) % Plt Count (150-400) X10^3/uL Neut % (Auto) (50-75) % Lymph % (Auto) (25-40) % Livingston % (Auto) (3-14) % Eos % (Auto) (2-4) % Baso % (Auto) (0-2) % Neut # (Auto) (2151-4705) /uL Lymph # (Auto) (7226-1911) /uL Livingston # (Auto) (0-900) /uL Eos # (Auto) (0-450) /uL Baso # (Auto) (0-100) /uL PT (10.1-12.7) SECONDS INR (0.9-1.3) APTT (26.4-36.2) SECONDS Sodium (137-145) mmol/L Potassium (3.4-5.1) mmol/L Chloride (98-107) mmol/L Carbon Dioxide (22-32) mmol/L BUN (9-20) mg/dL Creatinine (0.66-1.25) mg/dL Estimated GFR (>60) mL/min BUN/Creatinine Ratio (6-22) Glucose (80-110) mg/dL Calcium (8.4-10.2) mg/dL Total Bilirubin (0.2-1.3) mg/dL AST (17-59) IU/L ALT (<50) IU/L Alkaline Phosphatase (38-126) U/L Total Creatine Kinase (55-170) U/L CK-MB (CK-2) (<2.37) ng/mL CK-MB (CK-2) Rel Index (1.5-5.0) % Troponin I 0.028 (0.01-0.034) ng/mL Total Protein (6.3-8.2) g/dL Albumin (3.5-5.0) g/dL Globulin (1.7-4.1) g/dL Albumin/Globulin Ratio (1.0-2.8) Lipase (23-300) U/L Imaging Data Chest x-ray: Radiologist's Impression: [address] [address] XRay Report Signed Patient: Joe Haddad LMR#: [id number] : [id number]:[id number] Age/Sex: 69 / MDate of Service: 01/27/20 Loc: ED Accession Number: [id number] Procedure: XR chest 1V Ordering Provider: Santhosh Mejia MD PROCEDURE: XR CHEST 1V INDICATIONS: chest pain TECHNIQUE: One view of the chest was acquired. COMPARISON: [facility], , CHEST 2 VIEW, 05/17/2012, 11:20. FINDINGS: Surgical changes and devices: None. Lungs and pleura: Lungs are clear. No pleural effusions or pneumothorax. Mediastinum: Mediastinal contours appear normal. Heart size is normal. Bones and chest wall: No suspicious bony lesions. Overlying soft tissues appear unremarkable. IMPRESSION: No acute cardiopulmonary pathology. Dictated by: Victor Manuel Osorio M.D. on 01/27/2020 at 17:21 Approved by: Victor Manuel Osorio M.D. on 01/27/2020 at 17:22 ECG Data Interpretation: 1657: Sinus bradycardia, rate 50, TN interval 246, QTC 430. No ST elevation or ST depression. No ectopy, Possible T-way inversion in lead III, EKG also viewed by Dr. Miller. 2058: Sinus bradycardia, rate 48, TN interval 244, QTC 437. No ST elevation or ST depression. NO ectopy. T-wave inversion in lead 3. EKG also viewed by DR. miller per protocol. MDM Narrative Medical decision making narrative: 69-year-old male presenting to the emergency department for elevated BP over the past few days and chest pain which has resolved. Patient is currently low risk for cardiac events given serial negative troponins, serial negative EKGs, resolution of chest pain, heart score 3. Patient does not meet criteria for admission. Chest x-ray negative for any acute pulmonary etiology. Differential includes chronic radiation of back pain, however due to risk factors, patient could benefit from an outpatient stress test. Less concern for CVA given lack of symptoms such as headache or neurological changes. NIH score of 0. Patient was given very strict return precautions. He and agreed to plan of care verbalized understanding. They were encouraged to follow-up with PCP as soon as possible. <Cornelius Miller, DO - Last Filed: 01/27/20 22:02> Lab Data Labs: Lab Results 01/27/20 01/27/20 01/27/20 Range/Units 17:08 17:08 17:08 WBC 8.5 (4.5-11.0) X10^3/uL RBC 4.68 (4.5-5.9) X10^6/uL Hgb 14.5 (13.5-17.5) g/dL Hct 42.3 (41-53) % MCV 90.5 (80-100) fL MCH 31.0 (26-34) PG MCHC 34.3 (30-36) % RDW 12.7 (11.6-14.8) % Plt Count 207 (150-400) X10^3/uL Neut % (Auto) 65.1 (50-75) % Lymph % (Auto) 20.7 L (25-40) % Living[place] % (Auto) 10.6 (3-14) % Eos % (Auto) 2.8 (2-4) % Baso % (Auto) 0.8 (0-2) % Neut # (Auto) 5600 (7562-8821) /uL Lymph # (Auto) 1800 (8237-2301) /uL [place] # (Auto) 900 (0-900) /uL Eos # (Auto) 200 (0-450) /uL Baso # (Auto) 100 (0-100) /uL PT 10.9 (10.1-12.7) SECONDS INR 1.0 (0.9-1.3) APTT 36 (26.4-36.2) SECONDS Sodium 139 (137-145) mmol/L Potassium 3.6 (3.4-5.1) mmol/L Chloride 105 (98-107) mmol/L Carbon Dioxide 29 (22-32) mmol/L BUN 21 H (9-20) mg/dL Creatinine 1.02 (0.66-1.25) mg/dL Estimated GFR > 60.0 (>60) mL/min BUN/Creatinine Ratio 20.6 (6-22) Glucose 94 (80-110) mg/dL Calcium 9.2 (8.4-10.2) mg/dL Total Bilirubin 0.4 (0.2-1.3) mg/dL AST 39 (17-59) IU/L ALT 39 (<50) IU/L Alkaline Phosphatase 82 (38-126) U/L Total Creatine Kinase 281 H (55-170) U/L CK-MB (CK-2) 7.14 H (<2.37) ng/mL CK-MB (CK-2) Rel Index 2.5 (1.5-5.0) % Troponin I 0.021 (0.01-0.034) ng/mL Total Protein 6.7 (6.3-8.2) g/dL Albumin 4.1 (3.5-5.0) g/dL Globulin 2.6 (1.7-4.1) g/dL Albumin/Globulin Ratio 1.6 (1.0-2.8) Lipase 179 (23-300) U/L 01/27/20 Range/Units 20:05 WBC (4.5-11.0) X10^3/uL RBC (4.5-5.9) X10^6/uL Hgb (13.5-17.5) g/dL Hct (41-53) % MCV (80-100) fL MCH (26-34) PG MCHC (30-36) % RDW (11.6-14.8) % Plt Count (150-400) X10^3/uL Neut % (Auto) (50-75) % Lymph % (Auto) (25-40) % Living[place] % (Auto) (3-14) % Eos % (Auto) (2-4) % Baso % (Auto) (0-2) % Neut # (Auto) (7588-3054) /uL Lymph # (Auto) (7342-6685) /uL Livingston # (Auto) (0-900) /uL Eos # (Auto) (0-450) /uL Baso # (Auto) (0-100) /uL PT (10.1-12.7) SECONDS INR (0.9-1.3) APTT (26.4-36.2) SECONDS Sodium (137-145) mmol/L Potassium (3.4-5.1) mmol/L Chloride (98-107) mmol/L Carbon Dioxide (22-32) mmol/L BUN (9-20) mg/dL Creatinine (0.66-1.25) mg/dL Estimated GFR (>60) mL/min BUN/Creatinine Ratio (6-22) Glucose (80-110) mg/dL Calcium (8.4-10.2) mg/dL Total Bilirubin (0.2-1.3) mg/dL AST (17-59) IU/L ALT (<50) IU/L Alkaline Phosphatase (38-126) U/L Total Creatine Kinase (55-170) U/L CK-MB (CK-2) (<2.37) ng/mL CK-MB (CK-2) Rel Index (1.5-5.0) % Troponin I 0.028 (0.01-0.034) ng/mL Total Protein (6.3-8.2) g/dL Albumin (3.5-5.0) g/dL Globulin (1.7-4.1) g/dL Albumin/Globulin Ratio (1.0-2.8) Lipase (23-300) U/L Discharge Plan Departure Patient Disposition: Home Clinical Impression: Atypical chest pain Hypertension Qualifiers: Hypertension type: unspecified Qualified Code(s): I10 - Essential (primary) hypertension Discharge Date/Time: 01/27/20 21:50 Instructions: DI for Chest Pain Activity Restrictions/Additional Instructions: Thank you for entrusting me with your care today. As discussed, your laboratory tests, and multiple EKGs, chest x-ray were negative for any concerning findings. Your blood pressure was elevated today, it has significantly decreased throughout your stay. There are multiple causes for elevated blood pressure as we discussed. It is important that you follow-up with your primary care provider in 1-2 weeks for further follow-up to discuss the indication for possible stress test. Return emergency department for any new or worsening symptoms such as slurred speech, worsening chest pain, syncope, or any other concerns. Prescriptions: No Action metoprolol tartrate 100 mg Tablet 100 mg PO BID RF: 0 triamterene-hydrochlorothiazid 37.5-25 mg Capsule 1 cap PO QAM RF: 0 allopurinol 300 mg Tablet 300 mg PO QAM RF: 0 lisinopril 40 mg Tablet 40 mg PO QAM RF: 0 indomethacin 50 mg capsule 50 mg PO BID PRNRF: 0 trazodone 50 mg tablet 100 mg PO .COMPLEX PRN (Reason: insomnia) Qty: 60 RF: 2 Referrals: Cornelius Velasquez MD [Primary Care Provider] - <Cornelius Miller DO - Last Filed: 01/27/20 22:02> Cosign ED Attending Cosignature Attestation: Dr Miller Co-Sign Statement: I was available for consultation during this patient's emergency department visit. This chart is signed by myself for administrative purposes only. I did not have direct contact with this patient during this visit. They were seen independently by the APC.
[2020-01-27] MEDS: MORPHINE 4 MG/ML INJ IV (18:08)
[2020-01-27 20:54] LABS: Troponin I 0.028 ng/mL (0.01-0.034)
[2020-01-27] MEDS: OXYCODONE/ACETAMINOPHEN 5/325 TABLET 1 TAB PO (21:40)
== END 2020-01-27 21:50 | disposition home or self-care (01) ==
PROVIDERS: Emergency Medicine; Emergency Provider Nurse Practitioner; PCP Family Medicine
DX: I10 Essential (primary) hypertension (principal); R07.89 Other chest pain
CPT/HCPCS: 36415; 71045; 80053; 82550; 82553; 83690; 84484; 85025; 85610; 85730; 93005; 96374; 99284; J2270

== ENCOUNTER → 2022-10-02 07:08 | Outpatient (CLI) | payer MEDICARE, OTHER, SELFPAY ==
[2019-11-19 15:52] VITALS: BMI 34.8
--- NOTE | 2022-10-02 | DI.US.S_ITS ---
PROCEDURE: US ABD AORTA ANEURYSM SCREEN INDICATIONS: Encounter for screening for cardiovascular disorde TECHNIQUE: Real time scanning was performed of the aorta and iliac arteries, with image documentation. COMPARISON: None. FINDINGS: Aorta: Proximal aortic diameter measures 2.4 cm. Mid-aorta measures 2.6 cm. Distal aortic diameter is 2.3 cm. Iliac arteries: Right common iliac artery measures 1.3 cm. Left common iliac artery measures 1.1 cm. IMPRESSION: No abdominal aortic aneurysm. Ectatic mid aorta, consider 5 year follow-up. Dictated by: Rai Mcgrath M.D. on 10/02/2022 at 8:32 Approved by: Victor Manuel Osorio M.D. on 10/02/2022 at 8:33
== END ==
PROVIDERS: PCP Family Medicine; Referring Provider Family Medicine; Visit Provider Family Medicine
DX: Z13.6 Encounter for screening for cardiovascular disorders (principal); I77.811 Abdominal aortic ectasia
CPT/HCPCS: 76706

== ENCOUNTER 2022-11-02 17:53 | Emergency (ER) | payer MEDICARE, OTHER, SELFPAY ==
[2019-11-19 15:52] VITALS: BMI 34.8
[2022-11-02] VITALS (11 sets, daily range): BP systolic 173–205; BP diastolic 77–95; PULSE 49–56; RESP 14–20; TEMP 36.3; O2SAT 95–97; BMI 34.9
--- NOTE | 2022-11-02 18:07 | DI.RAD.S_ITS ---
PROCEDURE: XR CHEST 1V INDICATIONS: chest pain TECHNIQUE: One view of the chest was acquired. COMPARISON: [facility], , XR CHEST 1V, 01/27/2020, 17:53. [facility], , CHEST 2 VIEW, 05/17/2012, 11:20. FINDINGS: Surgical changes and devices: None. Lungs and pleura: Lungs are clear. No pleural effusions or pneumothorax. Mediastinum: Mediastinal contours appear normal. Heart size is normal. Bones and chest wall: No suspicious bony lesions. Overlying soft tissues appear unremarkable. IMPRESSION: No acute cardiopulmonary abnormality. Dictated by: Freddy Weber M.D. on 11/02/2022 at 20:18 Approved by: Freddy Weber M.D. on 11/02/2022 at 20:18
[2022-11-02 18:29] LABS: Add Manual Diff / Slide Review NO; Basophils Absolute Auto 100 /uL (0-100); Basophils Percent Auto 0.9 % (0-2); Eosinophils Absolute Auto 200 /uL (0-450); Hematocrit 44.9 % (41-53); Hemoglobin 15.7 g/dL (13.5-17.5); Lymphocytes Absolute Auto 2100 /uL (1100-4500); Lymphocytes Percent Auto 24.7 % (25-40); Mean Corpuscular Hemoglobin 31.6 PG (26-34); Mean Corpuscular Volume 90.3 fL (80-100); Monocytes Absolute Auto 1000 /uL (0-900); Neutrophils Absolute Auto 5100 /uL (1500-7000); Neutrophils Percent Auto 60.4 % (50-75); Platelet Count 253 X10^3/uL (150-400); Red Blood Cell Count 4.97 X10^6/uL (4.5-5.9); Red Cell Distribution Width 13.1 % (11.6-14.8); White Blood Cell Count 8.5 X10^3/uL (4.5-11.0)
[2022-11-02 18:36] LABS: Prothrombin Time 11.1 SECONDS (10.1-12.7)
[2022-11-02 18:38] LABS: PTT Partial Thromboplastin Tim 36 SECONDS (26-36)
[2022-11-02 18:40] LABS: Alanine Aminotransferase 32 IU/L (<50); Albumin 4.6 g/dL (3.5-5.0); Albumin Globulin Ratio 1.5 (1.0-2.8); Alkaline Phosphatase 70 U/L (38-126); Aspartate Aminotransferase 35 IU/L (17-59); BUN Creatinine Ratio 21.4 (6-22); Bilirubin Total 0.5 mg/dL (0.2-1.3); Blood Urea Nitrogen 18 mg/dL (9-20); Carbon Dioxide 29 mmol/L (22-32); Chloride 101 mmol/L (98-107); Creatine Kinase 245 U/L (55-170); Estimated Glomerular Filt Rate > 60 mL/min (>60); Glucose 92 mg/dL (80-110); HEMOLYSIS 17 (0-50); Lipase 208 U/L (23-300); Potassium 3.1 mmol/L (3.4-5.1); Sodium 138 mmol/L (137-145); Total Protein 7.6 g/dL (6.3-8.2)
[2022-11-02 18:51] LABS: Troponin I 0.016 ng/mL (0.01-0.034)
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
[2022-11-02] MEDS: POTASSIUM CHLORIDE 20 MEQ TAB 40 MEQ PO (19:45)
[2022-11-02] MEDS: METOPROLOL IR 25 MG TABLET 50 MG PO (20:14)
== END 2022-11-02 21:05 | disposition home or self-care (01) ==
PROVIDERS: Emergency Medicine; Emergency Provider Emergency Medicine; PCP Family Medicine
DX: E87.6 Hypokalemia (principal); R19.7 Diarrhea, unspecified; I10 Essential (primary) hypertension; Z87.891 Personal history of nicotine dependence
CPT/HCPCS: 36415; 71045; 80053; 81003; 82550; 83690; 83735; 84484; 85025; 85610; 85730; 93005; 93010; 99284

== ENCOUNTER → 2024-02-05 15:14 | Outpatient (CLI) | payer MEDICARE, OTHER, SELFPAY ==
[2019-11-19 15:52] VITALS: BMI 34.8
--- NOTE | 2024-02-05 15:17 | DI.CT.S_ITS ---
PROCEDURE: CT CERVICAL SPINE WO CON INDICATIONS: LUMBAR AND SPINAL STENOSIS TECHNIQUE: 3 mm thick sections acquired through the levels of interest. Sagittal and coronal reformats were then constructed. For radiation dose reduction, the following was used: automated exposure control. COMPARISON: [facility], CT, CT CERVICAL SPINE WITHOUT CONTRAST, 03/19/2018, 14:41. FINDINGS: Image quality: Excellent Postprocedure changes: Anterior fusion instrumentation with interbody spacer at C5-6 and C6-7. Solid osseous fusion at C5-6 vertebral body. Partial osseous fusion at C6-7 vertebral body. Additional facet fusion instrumentation at bilateral C5-6 and C6-7 facets. Solid osseous fusion of bilateral C5-6 and C6-7 facet. Straightening of cervical spine. Mild anterolisthesis C2 on C3. Vertebral body height of cervical spine are well maintained. Multilevel, moderate degenerative disease cervical spine, most pronounced at C3-4 and C4-5. Multilevel disc bulge and disc desiccation. Mild levoscoliosis at the cervical thoracic junction. Right osseous neural from stenosis: Mild at C3-4, C4-5, C5-6 and C6-7. Left osseous neural foraminal stenosis: Mild at C3-4, C4-5 and C6-7. Mild at C7-T1. Axial images: C2-3: Mild right, severe left cervical facet arthropathy. Posterior disc uncovering. No central canal stenosis. C3-4: Mild right, moderate left cervical facet arthropathy. No osseous central canal stenosis. C4-5: Mild bilateral cervical facet arthropathy. Posterior disc osteophyte complex. Mild osseous central canal stenosis. C5-6: Posterior disc osteophyte complex. Mild osseous central canal stenosis. C6-7: Posterior disc osteophyte complex. Mild osseous central canal stenosis. C7-T1: Mild right facet arthropathy. No osseous central canal stenosis. Other soft tissue findings: No cervical lymphadenopathy. Visualized lung apices unremarkable. IMPRESSION: 1. Anterior fusion instrumentation with interbody spacer and bilateral facet fusion instrumentation at C5-6 and C6-7. No hardware complication. 2. Multilevel degenerative changes cervical spine, most pronounced at C6-7, where there is mild osseous central canal stenosis and mild bilateral neural foraminal stenosis. Dictated by: Mary Celis M.D. on 02/05/2024 at 16:30 Approved by: Mary Celis M.D. on 02/05/2024 at 16:44
--- NOTE | 2024-02-05 15:17 | DI.CT.S_ITS ---
PROCEDURE: CT LUMBAR SPINE WO CON INDICATIONS: LUMBAR AND SPINAL STENOSIS TECHNIQUE: mm thick sections acquired through the levels of interest, without intravenous contrast 5 nonrib-bearing lumbar-type vertebral bodies.. Sagittal and coronal reformats were then constructed. For radiation dose reduction, the following was used: automated exposure control. COMPARISON: [facility], MR, MR LUMBAR SPINE WITHOUT CONTRAST, 07/11/2023, 9:50. FINDINGS: Image quality: Excellent Posterior fusion instrumentation with interbody spacer at L5-S1. No hardware complication. Mild levocurvature of the lumbar spine, centered at L3-4. Grade 1 anterolisthesis of L5 on S1. Small Schmorl's node at the inferior endplate of T11, and superior endplate of T12. Vertebral body height of the lumbar spine are well maintained. Multilevel disc bulge and disc desiccation. Mild degenerative disease of the lumbar spine. Right neural foraminal stenosis: Mild at L4-5, moderate at L5-S1. Left neural foraminal stenosis: Mild at L3-4, moderate at L4-5, and moderate at L5-S1. Axial images: T11-T12: Posterior disc osteophyte complex. No osseous central canal stenosis. T12-L1: Mild bilateral facet arthropathy with ligamentum flap for trapezii. No central canal stenosis. L1-2: Mild bilateral facet arthropathy with ligamentum flava hypertrophy. Mild central canal stenosis. Mild disc bulge. L2-3: Disc bulge. Moderate bilateral facet arthropathy with ligamentum flavum hypertrophy. Moderate central canal stenosis. L3-4: Mild bilateral facet arthropathy with ligamentum flap per [place]. Mild central canal stenosis. L4-5: Moderate bilateral facet arthropathy. No osseous central canal stenosis. Limited evaluation given associated streak artifact. L5-S1: Moderate bilateral facet arthropathy. Posterior disc uncovering. No central canal stenosis. Bridging osteophyte of bilateral sacroiliac joint. Small sclerotic lesion in the left sacral alar, nonspecific and may represent a bone island. The visualized sacrum is intact. No abdominal aortic aneurysm. IMPRESSION: 1. Posterior fusion instrumentation with interbody spacer at L5-S1. 2. Multilevel degenerative changes of the lumbar spine, most pronounced at L2-3, where there is moderate central canal stenosis. 3. Moderate bilateral neural foraminal stenosis at L5-S1. Dictated by: Mary Celis M.D. on 02/05/2024 at 16:45 Approved by: Mary Celis M.D. on 02/05/2024 at 17:01
== END ==
PROVIDERS: PCP Family Medicine; Referring Provider Family Medicine; Visit Provider Family Medicine
DX: M48.02 Spinal stenosis, cervical region (principal); M47.812 Spondylosis without myelopathy or radiculopathy, cervical region; M48.062 Spinal stenosis, lumbar region with neurogenic claudication; M47.816 Spondylosis without myelopathy or radiculopathy, lumbar region; M48.07 Spinal stenosis, lumbosacral region; M47.817 Spondylosis without myelopathy or radiculopathy, lumbosacral region; M54.9 Dorsalgia, unspecified; G89.29 Other chronic pain; G62.9 Polyneuropathy, unspecified; Z98.1 Arthrodesis status
CPT/HCPCS: 72127; 72133; Q9967